=== PATIENT | male | born 1990 | race Caucasian/White ===

== ENCOUNTER 2025-03-06 21:03 | Emergency (ER) | payer MEDICAID, SELFPAY ==
[2025-03-06 21:22] VITALS: BP 107/61; PULSE 65; RESP 16; TEMP 36.3; O2SAT 98; BMI 24.4
--- NOTE | 2025-03-07 00:55 | ED.WOUNDLAC ---
HPI - Wound/Laceration General Chief Complaint: Wound/Laceration Stated Complaint: need stitches lt leg Time Seen by Provider: 03/07/25 00:27 Source: patient Mode of arrival: ambulatory Limitations: no limitations History of Present Illness ED Provider: Elia YUEN HPI narrative: Patient is a 34-year-old male presenting to the ED for evaluation after a glass plate broke on his left foot resulting in a 2 cm laceration of the dorsum of the left foot. Patient was able to control bleeding at home, presents to the ED for repair. Patient denies foreign body sensation, reports plate broke cleanly. Related Data Allergies Allergy/AdvReac Type Severity Reaction Status Date / Time No Known Allergies Allergy Verified 03/06/25 21:26 Review of Systems Review of Systems: Yes all other systems are reviewed and are negative PMFSH Social History Social History Unable to assess alcohol history related to: Unknown Use of substances other than those prescribed or required for medical reasons: Unknown Advance Directives: No Advance Directives Information Provided: No Do you have a plan to hurt others: No Plan Physical Exam Vital Signs: Vital Signs: Last Vital Signs Temp 97.3 F 03/06/25 21:22 Pulse 65 03/06/25 21:22 Resp 16 03/06/25 21:22 BP 107/61 03/06/25 21:22 Pulse Ox 98 03/06/25 21:22 O2 Del Method Room Air 03/06/25 21:22 BMI result Body Mass Index 24.4 CONSTITUTIONAL: The patient appears non-toxic, well nourished and in no acute distress. Vital signs as documented. HEAD: Atraumatic, normocephalic. EYES: EOMs grossly intact, pupils equal, conjunctiva clear, no exudate. ENT: Nares patent, no discharge. Airway patent, no audible stridor, visible mucosa is pink and moist without noted lesions. NECK: trachea is midline, no obvious masses or gross abnormalities. CHEST: Symmetric movement, normal appearance. LUNGS: Non-labored work of breathing. CARDIAC: No evidence of hypoperfusion. ABDOMEN: Nondistended, no obvious injury. : Deferred. EXTREMITIES: There is an approximately 1.5 cm linear laceration noted to the dorsum of the left foot overlying the 1st metatarsal. Distal CSM intact, hemostasis achieved prior to arrival, no visible foreign body. No bony tenderness. Moves all extremities spontaneously without reported pain. No obvious injury or deformity noted. NEURO: Alert and oriented x3, CN II-XII appear grossly intact. Cerebellar Functioning grossly intact. Speech clear and appropriate. SKIN: Warm, dry, color appropriate. No rashes or lesions noted. Medications Administered Discontinued Medications Generic Name Dose Route Start Last Admin Trade Name Freq PRN Reason Stop Dose Admin Diphtheria/Tetanus/Acell Pertussis 0.5 ml 03/07/25 00:58 03/07/25 01:14 Diphth,Pertus(Acell),Tet Adult 0.5 Ml Syringe IM 03/07/25 00:59 0.5 ml .ONCE ONE Administration Lidocaine HCl 5 ml 03/07/25 00:54 03/07/25 01:15 Lidocaine Hcl 1 % Mpf 5 Ml Vial INFILTRATI 03/07/25 00:55 5 ml ONCE ONE Administration Procedures Laceration Laceration 1: Site: lower extremity Side (If applicable): left (foot) Size (cm): 1.5 Description: linear and clean Depth: simple, single layer Local Anesthetic: lidocaine 1% Amount of anesthesia used (mL): 2 Pre-repair: wound explored and irrigated extensively Skin layer closed with: nylon Size (cm): 4-0 Number of sutures: 2 Technique: simple, interrupted Discharge Plan Discharge Clinical Impression: Laceration Patient Disposition: Home, Self-Care Instructions: Laceration (ED) Additional Instructions: Thank you for choosing [facility] Emergency Department for your care today. Your laceration today appears noncomplicated. The laceration was repaired with nonabsorbable sutures which will need to be removed in 7-10 days. Please return to the emergency department or follow-up with your primary care provider for removal of sutures. Please apply bacitracin and a clean dry dressing to the laceration twice daily for the first 2-3 days. Then please keep the area clean and dry, but uncovered and exposed to the air to allow the laceration to heal. While it is perfectly acceptable to allow water to run over the sutures while showering, please do not swim, or submerge the laceration in standing water until the sutures are removed. You may take alternating (staggered) doses of ibuprofen 600mg and Tylenol 1000mg every 4 hours as needed for any additional pain. If you do not have a primary care physician, please call the [facility] at [phone] to establish a new primary care physician. While waiting to establish your new primary care physician, you can call our [facility] at [phone] for non-emergency needs. Please return to the emergency department if you develop any uncontrollable bleeding, re-opening of your wound, redness advancing >1-2 cm away from your wound, or white milky discharge from your wound. Please also return if you experience any other new or worsening symptoms or concerns. Print Language: Mauritanian
[2025-03-07] MEDS: Diphth,Pertus(ACell),Tet Adult 0.5 ML SYRINGE IM (01:14)
[2025-03-07] MEDS: Lidocaine HCl 1 % MPF 5 ML VIAL INFILTRATI (01:15)
[2025-03-07 01:32] VITALS: BP 107/61; PULSE 65; RESP 16; TEMP 36.3; O2SAT 98
== END 2025-03-07 01:32 | disposition home or self-care (01) ==
PROVIDERS: Emergency Provider Emergency Medicine
DX: S91.312A Laceration without foreign body, left foot, initial encounter (principal); M79.672 Pain in left foot; W25.XXXA Contact with sharp glass, initial encounter; Y93.9 Activity, unspecified; Y92.000 Kitchen of unspecified non-institutional (private) residence as the place of occurrence of the external cause; Y99.8 Other external cause status; Z23 Encounter for immunization
CPT/HCPCS: 12001; 90471; 90715; 99284; J2003